=== PATIENT | female | born 1955 | race Two or more races ===

== ENCOUNTER 2018-10-21 08:12 | Emergency (ER) | payer OTHER ==
[~2018-10-21] VITALS: Ht 172.7 cm; Wt 74.4 kg
[2018-10-21] MEDS ORDERED: LOSARTAN-HCTZ1 EAC1 ORAL (08:25)
[2018-10-21] MEDS ORDERED: ASPIR 8181 MG ORAL (08:25)
[2018-10-21] MEDS ORDERED: METOPROLOL TART25 MG ORAL (08:25)
[2018-10-21] MEDS ORDERED: ATORVASTATIN CA40 MG ORAL (08:25)
[2018-10-21 08:52] VITALS: BP 100/64
--- NOTE | 2018-10-21 08:55 | Emergency Room Report ---
History of Present Illness General Chief Complaint: Upper Respiratory Illness Source: Patient Present Illness HPI Patient presents with reports of cough and congestion over the past several days Denies any fevers she has had some phlegm production however Sore throat is well denies any headache denies any chest pain Denies any recent travel denies any vomiting or diarrhea Patient reports that she was told she had pneumonia about a month ago at another facility was given medications and felt that she had improved and the symptoms have now returned Allergies: Coded Allergies: No Known Allergies (Unverified , 10/21/18) Patient History Past Medical History: see triage record Pertinent Family History: none Last Menstrual Period: menopause Reviewed Nursing Documentation: PMH: Agreed; PSxH: Agreed Nursing Documentation-PMH Past Medical History: No History, Except For Hx Cardiac Problems: No - thyroid problem Hx Hypertension: Yes Review of Systems All Other Systems: negative except mentioned in HPI Physical Exam Vital Signs Date Time Temp Pulse Resp B/P (MAP) Pulse Ox O2 Delivery O2 Flow Rate FiO2 10/21/18 08:21 98.1 78 18 100/64 98 Room Air Sp02 EP Interpretation: reviewed, normal General Appearance: well appearing, no apparent distress Head: normocephalic, atraumatic Eyes: bilateral eye PERRL, bilateral eye EOMI ENT: hearing grossly normal, normal pharynx, TMs + canals normal, uvula midline Neck: full range of motion, supple, no meningismus, no bony tend Respiratory: lungs clear, normal breath sounds, no rhonchi, no respiratory distress, no retraction, no accessory muscle use Cardiovascular #1: normal peripheral pulses, regular rate, rhythm, no edema, no gallop, no JVD, no murmur Gastrointestinal: normal bowel sounds, non tender, soft, no mass, no organomegaly, non-distended, no guarding, no hernia, no pulsatile mass, no rebound Musculoskeletal: normal inspection Neurologic: oriented x3, responsive, miller rod mill III-XII nml as tested, motor strength/ tone normal, sensory intact Psychiatric: mood/affect normal Skin: normal color, no rash, warm/dry, palpation normal Lymphatic: normal inspection, no adenopathy Medical Decision Making Diagnostic Impression: Primary Impression: Upper respiratory infection ER Course Given the report of pneumonia patient has repeat imaging obtained No obvious acute pathology is seen patient remains hemodynamically stable has a benign repeat abdominal and chest exam Given the patient's symptoms there is some consistency with URI and possible flu symptoms patient is treated accordingly and will have initial conservative outpatient trial Chest X-Ray Diagnostic Results Chest X-Ray Diagnostic Results : Chest X-Ray Ordered: Yes # of Views/Limited/Complete: 1 View Indication: Shortness of Breath EP Interpretation: Yes Interpretation: no consolidation, no effusion, no pneumothorax, other - Evidence of implant on left side Impression: No acute disease Electronically Signed by: Simona Galvan DO Last Vital Signs Date Time Temp Pulse Resp B/P (MAP) Pulse Ox O2 Delivery O2 Flow Rate FiO2 10/21/18 08:52 98.1 68 18 100/64 98 Room Air Status: improved Disposition: HOME, SELF-CARE Condition: Improved Scripts Codeine/Promethazine Hcl* (PROMETHAZINE-CODEINE SYRUP*) 118 Ml Syrup 5 ML ORAL Q6H PRN for For Cough for 5 Days, ML 0 Refills Prov: Simona Galvan DO 10/21/18 Oseltamivir Phosphate (Tamiflu) 75 Mg Capsule 75 MG ORAL TWICE A DAY for 5 Days, CAP Prov: Simona Galvan DO 10/21/18 Additional Instructions: Patient is provided with the discharge instructions notified to follow up with primary doctor in the next 2-3 days otherwise return to the er with any worsening symptoms. Please note that this report is being documented using [employer]now [employer] technology. This can lead to erroneous entry secondary to incorrect interpretation by the dictating instrument. Simona Galvan DO Oct 21, 2018 08:55
[2018-10-21] MEDS ORDERED: PROMETHAZINE-C118 M1 ORAL (09:41)
[2018-10-21] MEDS ORDERED: TAMIFLU75 MG ORAL (09:41)
[2018-10-21 09:58] VITALS: BP 100/64
--- NOTE | 2018-10-21 10:01 | NUR ---
ED Nurse Note:pt. was treated and cleared for d/c by ER MD, chest x-ray done pt. received d/c instructions with prescriptions and left ER with steady gait
--- NOTE | 2018-10-21 11:30 | Diagnostic Imaging Report ---
Indication: Shortness of breath Technique: XRAY Chest 1v Comparison: None Findings: Heart size and mediastinal contours within normal limits. There is slight haziness of the left lung likely artifactual related to attenuation from overlying soft tissues/breast. No definite focal airspace consolidation. No silhouetting of the heart border or diaphragm. No pleural effusion or pneumothorax. A peripherally calcified left breast prosthesis is noted. There is gliosis and degenerative change of the spine. No acute osseous abnormality. IMPRESSION: * Slight haziness of the left lung likely artifactual related to attenuation from overlying soft tissues/breast. No definite focal airspace consolidation, pleural effusion or pneumothorax. * Left breast implant noted. * Scoliosis.
== END 2018-10-21 10:00 | disposition home or self-care (01) ==
LOC: EMR 09:48
DX: J06.9 Acute upper respiratory infection, unspecified (principal); I10 Essential (primary) hypertension
CPT/HCPCS: 71045; 99283

== ENCOUNTER 2018-12-28 15:09 | Emergency (ER) | payer OTHER ==
[~2018-12-28] VITALS: Ht 172.7 cm; Wt 77.1 kg
[~2018-12-28 15:09] MED LIST: ASPIR 8181 MG ORAL; ATORVASTATIN CA40 MG ORAL; LOSARTAN-HCTZ1 EAC1 ORAL; METOPROLOL TART25 MG ORAL; PROMETHAZINE-C118 M1 ORAL; TAMIFLU75 MG ORAL
[2018-12-28 15:31] VITALS: BP 116/73
--- NOTE | 2018-12-28 15:32 | NUR ---
ED Nurse Note: Patient walked in c/o facial skin rash/abscess x 3 days. Pt is A&O x4, V/S stable with no s/s of acute distress noted at this time. ERMD at bedside evaluating the pt. Will continue to monitor the pt.
--- NOTE | 2018-12-28 15:38 | Emergency Room Report ---
History of Present Illness General Chief Complaint: Skin Rash/Abscess Source: Patient, Medical Record Present Illness HPI 3 days ago the patient noticed a bump on her face. She was squeezing it. It's become red and more swollen at this time. She says is minimal pain at this time. She believes that this started as a bites. Her tetanus is up-to-date. She's been using Neosporin. The patient had a history of thyroid disease and was treated. Her recent thyroid tests are normal. Allergies: Coded Allergies: No Known Allergies (Unverified , 10/21/18) Patient History Past Medical History: see triage record Social History: Denies: smoking Last Menstrual Period: N/A Now: No : 5 Para: 2 Reviewed Nursing Documentation: PMH: Agreed; PSxH: Agreed Nursing Documentation-PMH Hx Cardiac Problems: No - thyroid problem Hx Hypertension: Yes Review of Systems Constitutional: Denies: fever Musculoskeletal: Denies: joint pain Skin: Reports: see HPI Neurological: Denies: headache Hematologic/Lymphatic: Denies: easy bleeding All Other Systems: negative except mentioned in HPI Physical Exam Vital Signs Date Time Temp Pulse Resp B/P (MAP) Pulse Ox O2 Delivery O2 Flow Rate FiO2 12/28/18 15:20 98.2 85 18 116/73 98 Room Air Sp02 EP Interpretation: reviewed, normal General Appearance: well appearing, no apparent distress Head: normocephalic, atraumatic Eyes: bilateral eye normal inspection, bilateral eye PERRL ENT: hearing grossly normal, normal voice Neck: full range of motion, supple Respiratory: no respiratory distress, speaking full sentences Gastrointestinal: normal inspection Musculoskeletal: no calf tenderness Neurologic: alert, oriented x3, normal gait, grossly normal Psychiatric: mood/affect normal Skin: other - raised and slightly erythematous lesion < 1 cm on L chin, no fluctuance Medical Decision Making Diagnostic Impression: Primary Impression: Bug bite of face with infection Qualified Codes: S00.86XA - Insect bite (nonvenomous) of other part of head, initial encounter; L08.9 - Local infection of the skin and subcutaneous tissue, unspecified; W57.XXXA - Bitten or stung by nonvenomous insect and other nonvenomous arthropods, initial encounter ER Course Patient with inflamed area left face. DDX: abscess, cellulitis, infected bug bite amongst others. The lesion is not an abscess at this time. Local care indicated. Oral antibiotics indicated. Patient stable for outpatient observation and treatment. Last Vital Signs Date Time Temp Pulse Resp B/P (MAP) Pulse Ox O2 Delivery O2 Flow Rate FiO2 12/28/18 15:44 97.0 86 16 98 Room Air 12/28/18 15:31 116/73 Status: improved Disposition: HOME, SELF-CARE Condition: Improved Scripts Trimethoprim/Sulfamethoxazole 160/800* (BACTRIM DS TABLET*) 1 Each Tablet 1 TAB ORAL Q12H, #14 TAB 0 Refills Prov: Nate Merritt MD 12/28/18 Nate Merritt MD Dec 28, 2018 15:38
[2018-12-28] MEDS ORDERED: BACTRIM DS TAB1 EAC1 ORAL (15:40)
--- NOTE | 2018-12-28 15:43 | NUR ---
ED Nurse Note: pt cleared to be d/c per ERMD, pt d/c and aftercare instruction provided w/ prescription, pt education done via discussion and handout, pt verbalized understanding and agrees with plan, left w/ all belongnings.
[2018-12-28] MEDS ORDERED: Bactrim-DS 1 tab ORAL ONE (15:45)
[2018-12-28] MEDS ORDERED: Bacitracin Oint UD TOPIC ONE (15:45)
== END 2018-12-28 16:00 | disposition home or self-care (01) ==
LOC: EMR 15:56
DX: S00.86XA Insect bite (nonvenomous) of other part of head, initial encounter (principal); L08.9 Local infection of the skin and subcutaneous tissue, unspecified; W57.XXXA Bitten or stung by nonvenomous insect and other nonvenomous arthropods, initial encounter; Y92.9 Unspecified place or not applicable; I10 Essential (primary) hypertension
CPT/HCPCS: 99281